=== PATIENT | female | born 1945 | race Caucasian/White ===

== ENCOUNTER 2018-03-01 17:25 | Inpatient (IN) ==
[2018-03-02] MEDS ORDERED: GuaiFENesin Liq 200 MG/10 ML UDC PO PRN (20:55)
[2018-03-02] MEDS ORDERED: *HR* Dextrose 50 % in Water (Syg) 50 ML SYRINGE IVP PRN (21:03)
[2018-03-02] MEDS ORDERED: Dextrose Gel 15 GM/37.5 ML TUBE PO PRN ×2 (21:03)
[2018-03-02] MEDS ORDERED: D5% in Water 1,000 ML IVC PRN (21:03)
[2018-03-03] MEDS ORDERED: cloNIDine HCl 0.1 MG TABLET PO ONE (00:05)
[2018-03-03] MEDS: hydroCHLOROthiazide 25 MG TABLET PO SCH (04:33)
[2018-03-03] MEDS: amLODIPine 5 MG TABLET PO SCH (04:33)
[2018-03-03] MEDS: Metoprolol XL (24 HR) Succ 50 MG TAB.ER.24H PO SCH (04:34)
[2018-03-03] MEDS: Lisinopril 20 MG TABLET PO SCH (04:35)
[2018-03-03] MEDS: Albuterol 2.5 MG/3 ML NEBULIZER IH PRN (04:37)
[2018-03-03 07:18] LABS: Basophils # 0.1 K/mcL (0.0-0.2); Basophils % 0.6 %; Eosinophils # 0.1 K/mcL (0.0-0.6); Eosinophils % 0.9 %; Hematocrit 41.9 % (35.3-44.9); Hemoglobin 13.8 g/dL (11.5-15.4); Immature Granulocytes % 0.4 % (0-4); Lymphocytes % 17.6 %; Mean Corpuscular HGB Conc 32.9 g/dL (31.6-35.5); Mean Corpuscular Hemoglobin 28.6 pg (28.0-33.3); Mean Corpuscular Volume 86.9 fL (83.0-100.0); Mean Platelet Volume 10.4 fL (9.4-12.4); Monocytes % 11.9 %; Platelet Count 238 K/mcL (140-400); Red Blood Count 4.82 M/mcL (3.82-4.97); Red Cell Distribution Width 12.8 % (11.5-14.5); Segmented Neutrophils % 68.6 %
[2018-03-03 07:27] LABS: BUN/Creatinine Ratio 49 (6-26); Blood Urea Nitrogen 21 mg/dL (8-23); Calcium 9.5 mg/dL (8.6-10.3); Carbon Dioxide 36 mEq/L (23-29); Chloride 95 mEq/L (98-107); Glucose 176 mg/dL (70-105); Osmolality,Calculated 289 (280-300); Potassium 3.2 mEq/L (3.5-5.1); Sodium 136 mEq/L (136-145); eGFR For African Americans > 60 (> 60); eGFR For Non-African Americans > 60 (> 60)
[2018-03-03 08:09] LABS: INR 1.3; Prothrombin Time 13.7 Seconds (9.4-12.1)
[2018-03-03 08:11] LABS: Activated Partial Thrombo Time 27.4 Seconds (26.0-36.0)
[2018-03-03 08:40] LABS: Lymphocytes # 1.4 K/mcL (0.6-4.6); Neutrophils # 5.6 K/mcL (1.6-8.9)
[2018-03-03] MEDS: Insulin LISPRO 300 UNITS/3 ML VIAL SQ SCH ×3 (08:49→18:13)
[2018-03-03] MEDS: *HR* Metformin 500 MG TABLET PO SCH (12:11)
--- NOTE | 2018-03-03 13:07 | Internal Med History&Physical ---
Date of Encounter: 03/03/18 Time of Encounter: 12:26 Assessment and Plan (1) Intracranial hemorrhage Current visit: Yes Status: Acute Patient is a new admission from [facility] course she was treated for a right traumatic cranial bleed. Patient has residual of left hemiplegia, slight expressive aphasia and lethargy. Oriented to name only and unable to follow complex directions or answer complex questions. Patient's neurological exam appears unchanged from [place]'s neurology exam. We will continue with supportive care. Patient to be evaluated by physical therapy with recommendations. We will maintain systolic blood pressure less than 160. (2) HTN (hypertension) Current visit: Yes Status: Acute Vital signs are stable. We will continue with current medications. Qualifiers: Hypertension type: essential hypertension Qualified Code(s): I10 - Essential (primary) hypertension (3) COPD (chronic obstructive pulmonary disease) Current visit: Yes Status: Acute Lungs are clear throughout. Patient appears relaxed with respirations. We will continue with current medications and bronchodilators Qualifiers: COPD type: unspecified COPD Qualified Code(s): J44.9 - Chronic obstructive pulmonary disease, unspecified (4) Lingular pneumonia Current visit: No Status: Acute Patient was treated at Hospital for pneumonia. Currently remains afebrile and pulmonary status appears stable. Internal Medicine - H&P: HPI Admitted From: Intrahospital Transfer Plans for Post Hospital Care: Home History of present illness: Ms. Hines is a 72 year old female is a transfer from [facility] course she was admitted for a right thalamic cranial bleed. Patient was treated nonsurgically and appeared to recover well. Patient had fallen and struck her head prior to admission. Patient had a CT and cervical spine was cleared Pt has residual of severe LE pariparesis and expressive aphasia. Pt was confused at hospital prior to discharge. Patient currently is confused, drowsy and unable to participate with interview, so history is been taken from medical records. No family present. Patient has a history of COPD, tobacco use, diabetes, GERD and hypertension. Past Med Surg Social Fam HX - Past Medical History Source: old records reviewed Medical history: asthma, COPD, CVA, diabetes, GERD, hyperlipidemia Psychiatric history: anxiety, depression - Past Surgical History Surgical History: other - Social History Smoking Status: Current every day smoker Packs per day: 2 packs Smokeless Tobacco Status: No Alcohol use: none Drug use: none Internal Medicine - H&P: Meds Albuterol Neb [Proventil Neb] 03/03/18 [History] Citalopram Hydrobromide [Citalopram HBr] 03/03/18 [History] Metoprolol Succinate 03/03/18 [History] Pantoprazole Sodium [Protonix] 03/03/18 [History] 3 Allergy/AdvReac Type Severity Reaction Status Date / Time Sulfa (Sulfonamide Allergy Hives Verified 03/02/18 20:51 Antibiotics) ranitidine [From Zantac] AdvReac Hives Verified 02/24/18 11:30 All Systems PM: A 10-system review of systems was performed and is negative for pertinent findings except as documented above in the HPI. - Constitutional Constitutional: as per HPI, no chills, no fever(s), no night sweats - EENT Eyes: as per HPI, no change in vision, no discharge, no pain, no photophobia Ears: no ear discharge, no ear pain, no tinnitus Nose, mouth and throat: no dysphagia, no nasal discharge, no neck pain, no sore throat - Cardiovascular Cardiovascular ROS IM: as per HPI, no chest pain, no diaphoresis, no dyspnea, no lightheadedness, no palpitations, no syncope - Respiratory Respiratory: as per HPI, no cough, no dyspnea, no wheezing, no excessive phlegm production - Gastrointestinal Gastrointestinal: no abdominal pain, no diarrhea, no hematemesis, no hematochezia, no melena, no nausea, no vomiting - Genitourinary Genitourinary: no change in urinary stream, no dysuria, no flank pain, no hematuria - Musculoskeletal Musculoskeletal ROS IM: no numbness, no tingling - Integumentary Integumentary IM: no rash, no unusual bruising - Neurological Neurological ROS: no confusion, no convulsions, no focal weakness, no numbness, no tingling, no tremor(s) - Hematologic/Lymphatic Hematologic/Lymphatic: no easy bruising - Constitutional Vitals: Temp Pulse Resp BP Pulse Ox 98.1 F 60 16 169/70 93 03/03/18 08:00 03/03/18 08:00 03/03/18 08:00 03/03/18 08:00 03/03/18 08:00 General appearance: Present: A&O X 1 Exam: Patient oriented to name only. Patient remains confused and unable to answer complex questions. - Head Head exam: Present: atraumatic, normocephalic - Eye Eye exam: Present: PERRL, conjuntiva pink, sclera anicteric Pupils: Present: PERRL - Neck Neck exam general surgery: Present: supple, trachea midline. Absent: lymphadenopathy - Respiratory Respiratory exam: Present: CTAB. Absent: accessory muscle use, rales, rhonchi, wheezes - Cardiovascular Cardiovascular exam: Present: RRR, +S1, +S2. Absent: diastolic murmur, gallop, rubs, systolic murmur - GI/Abdominal GI/Abdominal exam: Present: normal bowel sounds, soft, no peritoneal signs. Absent: distended, tenderness - Extremities Exam Extremities exam: Present: warm, radial pulses palpable and symmetrical. Absent : calf tenderness, cyanotic, pedal edema - Neurological Exam Neurological exam: Present: CN II-XII intact. Absent: pronater drift, facial droop, speech deficit Additional comments: Patient currently has left hemiplegia with LE flaccid and RE at 5/5. No withdrawal with left extremities. Slight expressive aphasia. Patient oriented to name only. Patient currently appears very drowsy but is awakened by verbal. Noted to have trouble staying awake. - Skin Skin exam: Present: dry, intact Internal Med - H&P Results - Labs CBC & Chem 7: 03/03/18 06:56 03/03/18 06:56 Labs: Short CBC 03/03/18 Range/Units 06:56 WBC 8.2 D (4.3-11.1) K/mcL Hgb 13.8 D (11.5-15.4) g/dL Hct 41.9 (35.3-44.9) % Plt Count 238 (140-400) K/mcL Neutrophils # 5.6 (1.6-8.9) K/mcL BMP 03/03/18 06:56 Sodium 136 Potassium 3.2 L Chloride 95 L Carbon Dioxide 36 H BUN 21 Creatinine 0.43 L Glucose 176 H Calcium 9.5
[2018-03-03] MEDS ORDERED: cloNIDine HCl 0.1 MG TABLET PO PRN (18:30)
[2018-03-04] MEDS: Insulin LISPRO 300 UNITS/3 ML VIAL SQ SCH ×5 (00:21→21:40)
[2018-03-04] MEDS: hydroCHLOROthiazide 25 MG TABLET PO SCH (08:55)
[2018-03-04] MEDS: amLODIPine 5 MG TABLET PO SCH (08:56)
[2018-03-04] MEDS: *HR* Metformin 500 MG TABLET PO SCH (08:56)
[2018-03-04] MEDS: Metoprolol XL (24 HR) Succ 50 MG TAB.ER.24H PO SCH (08:56)
--- NOTE | 2018-03-04 10:58 | Internal Med Progress Note ---
Date of Encounter: 03/04/18 Time of Encounter: 10:56 - Assessment and plan (1) Intracranial hemorrhage Current Visit: Yes Status: Inactive Assessment and plan: Patient remains very drowsy but is easily awakened. Does not dissipate in therapy very well. Continued left hemiplegia. We will continue to monitor closely. Continue with current medications. (2) HTN (hypertension) Current Visit: Yes Status: Acute Assessment and plan: Patient systolic blood pressure remains somewhat elevated on several readings. Patient has when necessary clonidine for systolic greater than 170. We will continue on current medications. Qualifiers: Hypertension type: essential hypertension Qualified Code(s): I10 - Essential (primary) hypertension (3) COPD (chronic obstructive pulmonary disease) Current Visit: Yes Status: Acute Assessment and plan: No acute issues. Patient's lungs are clear and patient appears relaxed with respirations. We will continue his current medications Qualifiers: COPD type: unspecified COPD Qualified Code(s): J44.9 - Chronic obstructive pulmonary disease, unspecified (4) Lingular pneumonia Current Visit: No Status: Inactive Assessment and plan: Patient was treated at Hospital for pneumonia and has completed her antibiotics. No further signs of infection or respiratory difficulties noted. Problem is resolved - Time Spent With Patient less than 15 minutes - Subjective Interval history: Patient continues to be very drowsy but is able to be awakened by verbal. Patient remains confused and oriented to name and sometimes to place. Exam is limited due to patient's drowsiness. - Constitutional Vitals: Temp Pulse Resp BP Pulse Ox 98.3 F 64 18 176/62 93 03/04/18 09:00 03/04/18 09:00 03/04/18 09:00 03/04/18 09:00 03/04/18 09:00 General appearance: Present: A&O X 1 Exam: This morning patient is oriented to name only. Patient has difficulty remembering that she is at a rehabilitation facility. Remains very drowsy and easily awakened - Head Head exam: Present: atraumatic, normocephalic - Eye Eye exam: Present: PERRL, conjuntiva pink, sclera anicteric Pupils: Present: PERRL - Neck Neck exam general surgery: Present: supple, trachea midline. Absent: lymphadenopathy - Respiratory Respiratory exam: Present: CTAB. Absent: accessory muscle use, rales, rhonchi, wheezes - Cardiovascular Cardiovascular exam: Present: RRR, +S1, +S2. Absent: diastolic murmur, gallop, rubs, systolic murmur - GI/Abdominal GI/Abdominal exam: Present: normal bowel sounds, soft, no peritoneal signs. Absent: distended, tenderness - Extremities Exam Extremities exam: Present: warm, radial pulses palpable and symmetrical. Absent : calf tenderness, cyanotic, pedal edema - Neurological Exam Neurological exam: Present: CN II-XII intact. Absent: pronater drift, facial droop, speech deficit Additional comments: Patient remains very drowsy but easily awakened by verbal. Oriented 1 to name only today. Poor short-term memory recall. Left hemiplegia - Skin Skin exam: Present: dry, intact Internal Medicine: Result - Labs CBC & Chem 7: 03/03/18 06:56 03/03/18 06:56 - ABG Interpretation ABG results: PT/INR, D-dimer PT 13.7 Seconds (9.4-12.1) H 03/03/18 06:56 Consult Discharge Plan - Plan Referrals: Earle Robledo MD [Primary Care Provider] -
[2018-03-04] MEDS: Lisinopril 20 MG TABLET PO SCH (12:21)
[2018-03-05] MEDS: *HR* Metformin 500 MG TABLET PO SCH (08:52)
[2018-03-05] MEDS: Metoprolol XL (24 HR) Succ 50 MG TAB.ER.24H PO SCH (08:52)
[2018-03-05] MEDS: amLODIPine 5 MG TABLET PO SCH (08:52)
[2018-03-05] MEDS: hydroCHLOROthiazide 25 MG TABLET PO SCH (08:52)
[2018-03-05] MEDS: Insulin LISPRO 300 UNITS/3 ML VIAL SQ SCH ×4 (08:55→20:35)
--- NOTE | 2018-03-05 09:28 | Internal Med Progress Note ---
Date of Encounter: 03/05/18 Time of Encounter: 09:26 - Assessment and plan (1) HTN (hypertension) Current Visit: Yes Status: Chronic Assessment and plan: stable no new change Qualifiers: Hypertension type: essential hypertension Qualified Code(s): I10 - Essential (primary) hypertension (2) COPD (chronic obstructive pulmonary disease) Current Visit: Yes Status: Chronic Assessment and plan: She is breathing her baseline with no acute issues Qualifiers: COPD type: unspecified COPD Qualified Code(s): J44.9 - Chronic obstructive pulmonary disease, unspecified (3) CVA (cerebrovascular accident due to intracerebral hemorrhage) Current Visit: Yes Status: Acute Assessment and plan: s/p left intracranial bleed clinically she is stable and improving Qualifiers: Intracerebral hemorrhage etiology: nontraumatic Cerebral hemorrhage location: cerebral hemisphere, cortical portion Laterality: left Qualified Code(s): I61.1 - Nontraumatic intracerebral hemorrhage in hemisphere, cortical - Subjective Interval history: no new complains She wants to go home and feels that she would do better at home No acute complains No chest pain nausea vomiting or diarrhea no fever or chills - Constitutional Vitals: Temp Pulse Resp BP Pulse Ox 97.9 F 60 18 153/74 88 03/05/18 07:12 03/05/18 07:12 03/04/18 19:49 03/05/18 07:12 03/05/18 07:12 General appearance: Present: A&O X 1, A&O X 3, pleasant, no acute distress - Head Head exam: Present: atraumatic - Eye Eye exam: Present: EOMI, PERRL - Neck Neck exam general surgery: Present: supple. Absent: tenderness, nuchal rigidity - Respiratory Respiratory exam: Present: CTAB. Absent: respiratory distress, rhonchi, stridor , wheezes, tachypnea - Cardiovascular Cardiovascular exam: Present: RRR, +S1, +S2. Absent: irregular rhythm, JVD - GI/Abdominal GI/Abdominal exam: Present: normal bowel sounds, soft. Absent: distended, firm , guarding, rebound, rigid - Extremities Exam Extremities exam: Absent: pedal edema, tenderness - Neurological Exam Neurological exam: Present: oriented X3. Absent: facial droop, speech deficit Additional comments: left side weakness no aphasia noted she is awake and her oriented has improved a lot since she was admitted Internal Medicine: Result - Labs CBC & Chem 7: 03/03/18 06:56 03/03/18 06:56 - ABG Interpretation ABG results: PT/INR, D-dimer PT 13.7 Seconds (9.4-12.1) H 03/03/18 06:56 - Impressions Impressions Chest X-Ray 03/04/18 13:57 IMPRESSION: 1. Airspace disease within the periphery of the right lower lobe which may reflect small effusion and atelectasis versus focal infiltrate. 2. Atelectasis within the left lung base. 3. Remote fracture of the distal left clavicle. D/ / Ayaan Mclaughlin MD / Ayaan Mclaughlin MD Interpreting Provider: Ayaan Mclaughlin MD Consult Discharge Plan - Plan Referrals: Earle Robledo MD [Primary Care Provider] -
[2018-03-05] MEDS: Lisinopril 20 MG TABLET PO SCH (12:32)
[2018-03-05] MEDS: Albuterol 2.5 MG/3 ML NEBULIZER IH PRN (20:35)
--- NOTE | 2018-03-06 09:16 | Internal Med Progress Note ---
Date of Encounter: 03/06/18 Time of Encounter: 09:14 - Assessment and plan (1) HTN (hypertension) Current Visit: Yes Status: Chronic Assessment and plan: Systolic is some what high increase HTCZ to 25 mg sodium levels are OK add KCL for few days labs tomorrow Qualifiers: Hypertension type: essential hypertension Qualified Code(s): I10 - Essential (primary) hypertension (2) COPD (chronic obstructive pulmonary disease) Current Visit: Yes Status: Chronic Assessment and plan: She is breathing her baseline with no acute issues. Some congestion however able to clear her lung with midl cough no fever or chill continue present treatment Qualifiers: COPD type: unspecified COPD Qualified Code(s): J44.9 - Chronic obstructive pulmonary disease, unspecified (3) CVA (cerebrovascular accident due to intracerebral hemorrhage) Current Visit: Yes Status: Acute Assessment and plan: s/p left intracranial bleed clinically she is stable and improving deperately wnats to go home I doubt that she is able to manage her self needs to continue rehab for now Qualifiers: Intracerebral hemorrhage etiology: nontraumatic Cerebral hemorrhage location: cerebral hemisphere, cortical portion Laterality: left Qualified Code(s): I61.1 - Nontraumatic intracerebral hemorrhage in hemisphere, cortical - Subjective Interval history: Feels the same as before she wants to go home has come pulmuary congestion but able to clear with cough . Alert and oriented . - Constitutional Vitals: Temp Pulse Resp BP Pulse Ox 97.6 F 55 16 166/52 94 03/06/18 07:00 03/06/18 07:00 03/06/18 07:00 03/06/18 07:00 03/06/18 07:00 General appearance: Present: A&O X 3, pleasant, no acute distress, answers questions appropriately - Head Head exam: Present: atraumatic - Eye Eye exam: Present: EOMI, PERRL. Absent: conjuntiva pink, sclera anicteric Pupils: Present: PERRL - Neck Neck exam general surgery: Present: supple. Absent: tenderness, nuchal rigidity - Respiratory Respiratory exam: Present: CTAB. Absent: chest wall tenderness, decreased breath sounds, respiratory distress, rhonchi, stridor, wheezes, tachypnea - Cardiovascular Cardiovascular exam: Present: RRR, +S1, +S2. Absent: bradycardia, clicks, irregular rhythm, JVD - GI/Abdominal GI/Abdominal exam: Present: normal bowel sounds, soft. Absent: firm, guarding, rebound, rigid - Extremities Exam Extremities exam: Absent: pedal edema, tenderness, warm - Neurological Exam Neurological exam: Present: alert, CN II-XII intact, oriented X3. Absent: facial droop, speech deficit Additional comments: Weakness left side as before no change Internal Medicine: Result - Labs CBC & Chem 7: 03/03/18 06:56 03/03/18 06:56 - ABG Interpretation ABG results: PT/INR, D-dimer PT 13.7 Seconds (9.4-12.1) H 03/03/18 06:56 Consult Discharge Plan - Plan Referrals: Earle Robledo MD [Primary Care Provider] -
[2018-03-06] MEDS: Insulin LISPRO 300 UNITS/3 ML VIAL SQ SCH ×4 (09:54→20:34)
[2018-03-06] MEDS: Metoprolol XL (24 HR) Succ 50 MG TAB.ER.24H PO SCH (09:55)
[2018-03-06] MEDS: amLODIPine 5 MG TABLET PO SCH (09:56)
[2018-03-06] MEDS: *HR* Metformin 500 MG TABLET PO SCH (09:56)
[2018-03-06] MEDS: Lisinopril 20 MG TABLET PO SCH (13:02)
[2018-03-06] MEDS: Mag Hydrox/Al Hydrox/Simeth 30 ML UDC PO PRN (23:03)
[2018-03-07] MEDS: hydroCHLOROthiazide 25 MG TABLET PO SCH ×2 (07:59→10:29)
[2018-03-07] MEDS: *HR* Metformin 500 MG TABLET PO SCH (10:29)
[2018-03-07] MEDS: Metoprolol XL (24 HR) Succ 50 MG TAB.ER.24H PO SCH (10:29)
[2018-03-07] MEDS: amLODIPine 5 MG TABLET PO SCH (10:29)
[2018-03-07] MEDS: Lisinopril 20 MG TABLET PO SCH (10:29)
[2018-03-07] MEDS: Insulin LISPRO 300 UNITS/3 ML VIAL SQ SCH ×4 (10:30→22:23)
--- NOTE | 2018-03-07 14:56 | Internal Med Progress Note ---
Date of Encounter: 03/07/18 Time of Encounter: 14:53 - Assessment and plan (1) CVA (cerebrovascular accident due to intracerebral hemorrhage) Current Visit: Yes Status: Acute Assessment and plan: No new neuro deficits at this time. Continue PT\OT\ST. Will follow up with neurologist as scheduled. Qualifiers: Intracerebral hemorrhage etiology: nontraumatic Cerebral hemorrhage location: cerebral hemisphere, cortical portion Laterality: left Qualified Code(s): I61.1 - Nontraumatic intracerebral hemorrhage in hemisphere, cortical (2) HTN (hypertension) Current Visit: Yes Status: Chronic Assessment and plan: Controlled with current medication. Monitor blood pressure. Qualifiers: Hypertension type: essential hypertension Qualified Code(s): I10 - Essential (primary) hypertension (3) COPD (chronic obstructive pulmonary disease) Current Visit: Yes Status: Chronic Assessment and plan: Stable. Continue oxygen. Monitor saturation. Continue inhaled medication. Qualifiers: COPD type: unspecified COPD Qualified Code(s): J44.9 - Chronic obstructive pulmonary disease, unspecified - Time Spent With Patient 25 - 35 minutes - Subjective Interval history: Patient taking lots of encouragement to participate with therapy. Very fatigued. No new neurological deficits. Patient is max assist for transfers. Denies any pain or complaints at this time. - Constitutional Vitals: Temp Pulse Resp BP Pulse Ox 98.1 F 54 16 162/59 95 03/07/18 07:00 03/07/18 07:00 03/07/18 07:00 03/07/18 11:52 03/07/18 07:00 General appearance: Present: A&O X 3, pleasant, no acute distress, answers questions appropriately - Head Head exam: Present: atraumatic, normocephalic - Eye Eye exam: Present: PERRL, conjuntiva pink, sclera anicteric Pupils: Present: PERRL - Neck Neck exam general surgery: Present: supple, trachea midline. Absent: lymphadenopathy - Respiratory Respiratory exam: Present: CTAB. Absent: accessory muscle use, rales, rhonchi, wheezes - Cardiovascular Cardiovascular exam: Present: RRR, +S1, +S2. Absent: diastolic murmur, gallop, rubs, systolic murmur - GI/Abdominal GI/Abdominal exam: Present: normal bowel sounds, soft, no peritoneal signs. Absent: distended, tenderness - Extremities Exam Extremities exam: Present: warm, radial pulses palpable and symmetrical. Absent : calf tenderness, cyanotic, pedal edema Additional comments: Left-sided weakness - Neurological Exam Neurological exam: Present: CN II-XII intact, oriented X3, no focal deficits. Absent: pronater drift, facial droop, speech deficit - Skin Skin exam: Present: dry, intact Internal Medicine: Result - Labs CBC & Chem 7: 03/03/18 06:56 03/03/18 06:56 - ABG Interpretation ABG results: PT/INR, D-dimer PT 13.7 Seconds (9.4-12.1) H 03/03/18 06:56 - VTE Documentation of Mechanical Device: Graduated compression elastic hosiery Consult Discharge Plan - Plan Referrals: Earle Robledo MD [Primary Care Provider] -
[2018-03-08 06:03] LABS: Basophils # 0.1 K/mcL (0.0-0.2); Basophils % 0.8 %; Eosinophils # 0.1 K/mcL (0.0-0.6); Eosinophils % 1.3 %; Hemoglobin 13.7 g/dL (11.5-15.4); Immature Granulocytes % 0.2 % (0-4); Mean Corpuscular HGB Conc 34.3 g/dL (31.6-35.5); Mean Corpuscular Volume 84.7 fL (83.0-100.0); Mean Platelet Volume 11.6 fL (9.4-12.4); Monocytes # 1.1 K/mcL (0.0-1.3); Monocytes % 10.4 %; Neutrophils # 6.1 K/mcL (1.6-8.9); Platelet Count 234 K/mcL (140-400); Red Blood Count 4.72 M/mcL (3.82-4.97); Red Cell Distribution Width 12.5 % (11.5-14.5); Segmented Neutrophils % 58.3 %
[2018-03-08 06:15] LABS: BUN/Creatinine Ratio 34 (6-26); Blood Urea Nitrogen 17 mg/dL (8-23); Calcium 9.3 mg/dL (8.6-10.3); Carbon Dioxide 37 mEq/L (23-29); Chloride 94 mEq/L (98-107); Glucose 96 mg/dL (70-105); Osmolality,Calculated 281 (280-300); Potassium 3.7 mEq/L (3.5-5.1); Sodium 135 mEq/L (136-145); eGFR For African Americans > 60 (> 60); eGFR For Non-African Americans > 60 (> 60)
[2018-03-08] MEDS: *HR* Metformin 500 MG TABLET PO SCH (09:47)
[2018-03-08] MEDS: Metoprolol XL (24 HR) Succ 50 MG TAB.ER.24H PO SCH (09:48)
[2018-03-08] MEDS: amLODIPine 5 MG TABLET PO SCH (09:48)
[2018-03-08] MEDS: hydroCHLOROthiazide 25 MG TABLET PO SCH (09:50)
[2018-03-08] MEDS: Insulin LISPRO 300 UNITS/3 ML VIAL SQ SCH ×4 (09:50→20:41)
[2018-03-08] MEDS: Lisinopril 20 MG TABLET PO SCH (12:49)
--- NOTE | 2018-03-08 12:56 | Internal Med Progress Note ---
Date of Encounter: 03/08/18 Time of Encounter: 12:52 - Assessment and plan (1) CVA (cerebrovascular accident due to intracerebral hemorrhage) Current Visit: Yes Status: Acute Assessment and plan: left hemiplegia. No new neuro deficits at this time. Continue PT\OT\ST. Will follow up with neurologist as scheduled. ST to repeat modified barium swallow. Qualifiers: Intracerebral hemorrhage etiology: nontraumatic Cerebral hemorrhage location: cerebral hemisphere, cortical portion Laterality: left Qualified Code(s): I61.1 - Nontraumatic intracerebral hemorrhage in hemisphere, cortical (2) HTN (hypertension) Current Visit: Yes Status: Chronic Assessment and plan: Controlled with current medication. Monitor blood pressure. Qualifiers: Hypertension type: essential hypertension Qualified Code(s): I10 - Essential (primary) hypertension (3) COPD (chronic obstructive pulmonary disease) Current Visit: Yes Status: Chronic Assessment and plan: Stable. Continue oxygen. Monitor saturation. Continue inhaled medication. only used O2 prn at home prior to admission. Qualifiers: COPD type: unspecified COPD Qualified Code(s): J44.9 - Chronic obstructive pulmonary disease, unspecified - Time Spent With Patient 25 - 35 minutes - Subjective Interval history: Patient up in wheelchair eating lunch. Feeding self. Pure diet with nectar thick liquids. Asking to go home, states family will take care of her. discussed with her safety issue. States she will smoke anymore. History of 2 pack per day smoker. no new neurodeficits or complaints. left sided hemiplegia. - Constitutional Vitals: Temp Pulse Resp BP Pulse Ox 97.8 F 58 15 165/58 94 03/08/18 07:55 03/08/18 07:55 03/07/18 19:00 03/08/18 07:55 03/08/18 07:55 General appearance: Present: A&O X 3, pleasant, no acute distress, answers questions appropriately - Head Head exam: Present: atraumatic, normocephalic - Eye Eye exam: Present: PERRL, conjuntiva pink, sclera anicteric Pupils: Present: PERRL - Neck Neck exam general surgery: Present: supple, trachea midline. Absent: lymphadenopathy - Respiratory Respiratory exam: Present: CTAB. Absent: accessory muscle use, rales, rhonchi, wheezes - Cardiovascular Cardiovascular exam: Present: RRR, +S1, +S2. Absent: diastolic murmur, gallop, rubs, systolic murmur - GI/Abdominal GI/Abdominal exam: Present: normal bowel sounds, soft, no peritoneal signs. Absent: distended, tenderness - Extremities Exam Extremities exam: Present: warm, radial pulses palpable and symmetrical. Absent : calf tenderness, cyanotic, pedal edema Additional comments: left hemiplegia. - Neurological Exam Neurological exam: Present: CN II-XII intact, oriented X3, no focal deficits. Absent: pronater drift, facial droop, speech deficit - Skin Skin exam: Present: dry, intact Internal Medicine: Result - Labs CBC & Chem 7: 03/08/18 05:10 03/08/18 05:10 Labs: Short CBC 03/08/18 Range/Units 05:10 WBC 10.4 (4.3-11.1) K/mcL Hgb 13.7 (11.5-15.4) g/dL Hct 40.0 (35.3-44.9) % Plt Count 234 (140-400) K/mcL Neutrophils # 6.1 (1.6-8.9) K/mcL BMP 03/08/18 05:10 Sodium 135 L Potassium 3.7 Chloride 94 L Carbon Dioxide 37 H BUN 17 Creatinine 0.50 L Glucose 96 Calcium 9.3 - ABG Interpretation ABG results: PT/INR, D-dimer PT 13.7 Seconds (9.4-12.1) H 03/03/18 06:56 - VTE Documentation of Mechanical Device: Graduated compression elastic hosiery Consult Discharge Plan - Plan Referrals: Earle Robledo MD [Primary Care Provider] -
[2018-03-09] MEDS: Metoprolol XL (24 HR) Succ 50 MG TAB.ER.24H PO SCH (09:16)
[2018-03-09] MEDS: hydroCHLOROthiazide 25 MG TABLET PO SCH (09:16)
[2018-03-09] MEDS: amLODIPine 5 MG TABLET PO SCH (09:16)
[2018-03-09] MEDS: *HR* Metformin 500 MG TABLET PO SCH (09:16)
[2018-03-09] MEDS: Insulin LISPRO 300 UNITS/3 ML VIAL SQ SCH ×4 (09:16→21:08)
[2018-03-09] MEDS: Lisinopril 20 MG TABLET PO SCH (12:34)
--- NOTE | 2018-03-09 15:55 | Internal Med Progress Note ---
Date of Encounter: 03/09/18 Time of Encounter: 15:53 - Assessment and plan (1) CVA (cerebrovascular accident due to intracerebral hemorrhage) Current Visit: Yes Status: Acute Assessment and plan: left hemiplegia. No new neuro deficits at this time. Continue PT\OT\ST. Will follow up with neurologist as scheduled. ST to repeat modified barium swallow. Qualifiers: Intracerebral hemorrhage etiology: nontraumatic Cerebral hemorrhage location: cerebral hemisphere, cortical portion Laterality: left Qualified Code(s): I61.1 - Nontraumatic intracerebral hemorrhage in hemisphere, cortical (2) HTN (hypertension) Current Visit: Yes Status: Chronic Assessment and plan: Controlled with current medication. Monitor blood pressure. Qualifiers: Hypertension type: essential hypertension Qualified Code(s): I10 - Essential (primary) hypertension (3) COPD (chronic obstructive pulmonary disease) Current Visit: Yes Status: Chronic Assessment and plan: Stable. Continue oxygen. Monitor saturation. Continue inhaled medication. only used O2 prn at home prior to admission. Qualifiers: COPD type: unspecified COPD Qualified Code(s): J44.9 - Chronic obstructive pulmonary disease, unspecified - Time Spent With Patient less than 15 minutes - Subjective Interval history: Participating with therapy. Poor trunk control with no awareness. Left hemiplegia Feeding self. Pure diet with nectar thick liquids. Asking to go home, states family will take care of her. discussed with her safety issue. no new neurodeficits or complaints. left sided hemiplegia. Denies pain or any other complaints at this time. - Constitutional Vitals: Temp Pulse Resp BP Pulse Ox 98.1 F 71 16 152/67 97 03/09/18 07:00 03/09/18 12:21 03/09/18 07:00 03/09/18 12:21 03/09/18 07:00 General appearance: Present: A&O X 3, pleasant, no acute distress, answers questions appropriately Exam: Dysarthria with slight left facial droop and left hemiplegia - Head Head exam: Present: atraumatic, normocephalic - Eye Eye exam: Present: PERRL, conjuntiva pink, sclera anicteric Pupils: Present: PERRL - Neck Neck exam general surgery: Present: supple, trachea midline. Absent: lymphadenopathy - Respiratory Respiratory exam: Present: CTAB. Absent: accessory muscle use, rales, rhonchi, wheezes - Cardiovascular Cardiovascular exam: Present: RRR, +S1, +S2. Absent: diastolic murmur, gallop, rubs, systolic murmur - GI/Abdominal GI/Abdominal exam: Present: normal bowel sounds, soft, no peritoneal signs. Absent: distended, tenderness - Extremities Exam Extremities exam: Present: warm, radial pulses palpable and symmetrical. Absent : calf tenderness, cyanotic, pedal edema - Neurological Exam Neurological exam: Present: CN II-XII intact, oriented X3, no focal deficits. Absent: pronater drift, facial droop, speech deficit - Skin Skin exam: Present: dry, intact Internal Medicine: Result - Labs CBC & Chem 7: 03/08/18 05:10 03/08/18 05:10 - ABG Interpretation ABG results: PT/INR, D-dimer PT 13.7 Seconds (9.4-12.1) H 03/03/18 06:56 - VTE Documentation of Mechanical Device: Graduated compression elastic hosiery Consult Discharge Plan - Plan Referrals: Earle Robledo MD [Primary Care Provider] -
[2018-03-10] MEDS: amLODIPine 5 MG TABLET PO SCH (08:27)
[2018-03-10] MEDS: Metoprolol XL (24 HR) Succ 50 MG TAB.ER.24H PO SCH (08:27)
[2018-03-10] MEDS: *HR* Metformin 500 MG TABLET PO SCH (08:27)
[2018-03-10] MEDS: hydroCHLOROthiazide 25 MG TABLET PO SCH (08:28)
[2018-03-10] MEDS: Insulin LISPRO 300 UNITS/3 ML VIAL SQ SCH ×4 (11:31→21:25)
[2018-03-10] MEDS: Lisinopril 20 MG TABLET PO SCH (12:01)
--- NOTE | 2018-03-10 12:05 | Internal Med Progress Note ---
Date of Encounter: 03/10/18 Time of Encounter: 12:03 - Assessment and plan (1) Intracranial hemorrhage Current Visit: Yes Status: Inactive Assessment and plan: Patient drowsy when in bed, but easily awakened by verbal. Continued left hemiparesis, appears slightly increased and muscle strength over the past week. No other acute neurological deficits noted on exam. Patient has been tolerating dysphagia diet well. We will continue to monitor closely. Continue with current medications and therapy. (2) HTN (hypertension) Current Visit: Yes Status: Chronic Assessment and plan: Patient systolic blood pressure remains somewhat elevated on several readings. Patient has when necessary clonidine for systolic greater than 170. We will continue on current medications. Qualifiers: Hypertension type: essential hypertension Qualified Code(s): I10 - Essential (primary) hypertension (3) COPD (chronic obstructive pulmonary disease) Current Visit: Yes Status: Chronic Assessment and plan: No acute issues. Patient's lungs are clear and patient appears relaxed with respirations. Last CXR shows no acute infectious process. We will continue his current medications Qualifiers: COPD type: unspecified COPD Qualified Code(s): J44.9 - Chronic obstructive pulmonary disease, unspecified - Time Spent With Patient less than 15 minutes - Subjective Interval history: Patient continues to be drowsy but is able to be awakened by verbal. Patient appears more oriented today and states that she wants to go home soon. Denies any discomforts or shortness of breath - Constitutional Vitals: Temp Pulse Resp BP Pulse Ox 98.0 F 58 20 134/57 95 03/10/18 08:03 03/10/18 08:03 03/10/18 08:03 03/10/18 08:03 03/10/18 08:03 General appearance: Present: A&O X 3, pleasant, no acute distress, answers questions appropriately - Head Head exam: Present: atraumatic, normocephalic - Eye Eye exam: Present: PERRL, conjuntiva pink, sclera anicteric Pupils: Present: PERRL - Neck Neck exam general surgery: Present: supple, trachea midline. Absent: lymphadenopathy - Respiratory Respiratory exam: Present: CTAB. Absent: accessory muscle use, rales, rhonchi, wheezes - Cardiovascular Cardiovascular exam: Present: RRR, +S1, +S2. Absent: diastolic murmur, gallop, rubs, systolic murmur - GI/Abdominal GI/Abdominal exam: Present: normal bowel sounds, soft, no peritoneal signs. Absent: distended, tenderness - Extremities Exam Extremities exam: Present: warm, radial pulses palpable and symmetrical. Absent : calf tenderness, cyanotic, pedal edema - Neurological Exam Neurological exam: Present: CN II-XII intact, oriented X3. Absent: pronater drift, facial droop, speech deficit Additional comments: Continued left hemiparesis with LE 2/5 and RE 5/5. - Skin Skin exam: Present: dry, intact Internal Medicine: Result - Labs CBC & Chem 7: 03/08/18 05:10 03/08/18 05:10 - ABG Interpretation ABG results: PT/INR, D-dimer PT 13.7 Seconds (9.4-12.1) H 03/03/18 06:56 - VTE Documentation of Mechanical Device: Graduated compression elastic hosiery Consult Discharge Plan - Plan Referrals: Earle Robledo MD [Primary Care Provider] -
[2018-03-11] MEDS: Insulin LISPRO 300 UNITS/3 ML VIAL SQ SCH ×4 (08:57→21:33)
[2018-03-11] MEDS: hydroCHLOROthiazide 25 MG TABLET PO SCH (09:03)
[2018-03-11] MEDS: Metoprolol XL (24 HR) Succ 50 MG TAB.ER.24H PO SCH (09:03)
[2018-03-11] MEDS: amLODIPine 5 MG TABLET PO SCH (09:03)
[2018-03-11] MEDS: *HR* Metformin 500 MG TABLET PO SCH (09:04)
--- NOTE | 2018-03-11 10:47 | Internal Med Progress Note ---
Date of Encounter: 03/11/18 Time of Encounter: 10:45 - Assessment and plan (1) Intracranial hemorrhage Current Visit: Yes Status: Inactive Assessment and plan: Patient drowsy when in bed, but easily awakened by verbal. Continued left hemiparesis, continues with slight increased in muscle strength over the past week. No other acute neurological deficits noted on exam. Patient has been tolerating dysphagia diet well. We will continue to monitor closely. Continue with current medications and therapy. (2) HTN (hypertension) Current Visit: Yes Status: Chronic Assessment and plan: Patient systolic blood pressure remains somewhat elevated on several readings. Patient has when necessary clonidine for systolic greater than 170. We will continue on current medications. Qualifiers: Hypertension type: essential hypertension Qualified Code(s): I10 - Essential (primary) hypertension (3) COPD (chronic obstructive pulmonary disease) Current Visit: Yes Status: Chronic Assessment and plan: No acute issues. Patient's lungs are clear and patient appears relaxed with respirations. Last CXR shows no acute infectious process. We will continue his current medications Qualifiers: COPD type: unspecified COPD Qualified Code(s): J44.9 - Chronic obstructive pulmonary disease, unspecified - Time Spent With Patient less than 15 minutes - Subjective Interval history: Patient continues to be drowsy and falls asleep when not stimulated. Patient is always very easily to awakened by verbal. Patient appears more oriented today and states that she wants to go home soon. Denies any discomforts or shortness of breath. Physical therapy reports patient has been progressing with movement on her left extremities. - Constitutional Vitals: Temp Pulse Resp BP Pulse Ox 97.8 F 57 17 153/71 96 03/11/18 07:41 03/11/18 07:41 03/11/18 07:41 03/11/18 07:41 03/11/18 07:41 General appearance: Present: A&O X 3, pleasant, no acute distress, answers questions appropriately - Head Head exam: Present: atraumatic, normocephalic - Eye Eye exam: Present: PERRL, conjuntiva pink, sclera anicteric Pupils: Present: PERRL - Neck Neck exam general surgery: Present: supple, trachea midline. Absent: lymphadenopathy - Respiratory Respiratory exam: Present: CTAB. Absent: accessory muscle use, rales, rhonchi, wheezes - Cardiovascular Cardiovascular exam: Present: RRR, +S1, +S2. Absent: diastolic murmur, gallop, rubs, systolic murmur - GI/Abdominal GI/Abdominal exam: Present: normal bowel sounds, soft, no peritoneal signs. Absent: distended, tenderness - Extremities Exam Extremities exam: Present: warm, radial pulses palpable and symmetrical. Absent : calf tenderness, cyanotic, pedal edema - Neurological Exam Neurological exam: Present: CN II-XII intact, oriented X3. Absent: pronater drift, facial droop, speech deficit Additional comments: Patient continues with left hemiparesis. Noted slight increase in muscle strength on the left with patient being able to move the fingers and her left foot. Left extremities currently at 2/5 MS and right extremities are 5/5 MS. - Skin Skin exam: Present: dry, intact Internal Medicine: Result - Labs CBC & Chem 7: 03/08/18 05:10 03/08/18 05:10 - ABG Interpretation ABG results: PT/INR, D-dimer PT 13.7 Seconds (9.4-12.1) H 03/03/18 06:56 - VTE Documentation of Mechanical Device: Graduated compression elastic hosiery Consult Discharge Plan - Plan Referrals: Earle Robledo MD [Primary Care Provider] -
[2018-03-11] MEDS: Lisinopril 20 MG TABLET PO SCH (11:44)
[2018-03-12] MEDS: Insulin LISPRO 300 UNITS/3 ML VIAL SQ SCH ×4 (08:12→21:04)
[2018-03-12] MEDS: amLODIPine 5 MG TABLET PO SCH (09:19)
[2018-03-12] MEDS: hydroCHLOROthiazide 25 MG TABLET PO SCH (09:20)
[2018-03-12] MEDS: *HR* Metformin 500 MG TABLET PO SCH (09:20)
[2018-03-12] MEDS: Metoprolol XL (24 HR) Succ 50 MG TAB.ER.24H PO SCH (09:21)
[2018-03-12] MEDS: Lisinopril 20 MG TABLET PO SCH (11:46)
--- NOTE | 2018-03-12 14:48 | Internal Med Progress Note ---
Date of Encounter: 03/12/18 Time of Encounter: 14:46 - Assessment and plan (1) CVA (cerebrovascular accident due to intracerebral hemorrhage) Current Visit: Yes Status: Acute Assessment and plan: Patient denies acute issues. Wants to go home. We will continue as planned with therapies, etc. Qualifiers: Intracerebral hemorrhage etiology: nontraumatic Cerebral hemorrhage location: cerebral hemisphere, cortical portion Laterality: left Qualified Code(s): I61.1 - Nontraumatic intracerebral hemorrhage in hemisphere, cortical (2) COPD (chronic obstructive pulmonary disease) Current Visit: Yes Status: Chronic Assessment and plan: Clinically stable. We will continue home regimen and follow. This includes oxygen at 1 L/m. Qualifiers: COPD type: unspecified COPD Qualified Code(s): J44.9 - Chronic obstructive pulmonary disease, unspecified (3) HTN (hypertension) Current Visit: Yes Status: Chronic Assessment and plan: Clinically stable. We will continue home regimen and follow. Qualifiers: Hypertension type: essential hypertension Qualified Code(s): I10 - Essential (primary) hypertension - Time Spent With Patient 25 - 35 minutes - Subjective Interval history: Patient wants to go home, as ever. She has no other acute complaints. Patient has no complaint of chest discomfort, dyspnea, orthopnea, palpitations, nausea or vomiting, constipation or diarrhea, other changes in bowel habits, difficulty with urination, rash or itching, or other new complaints, except as mentioned above. Review of systems is otherwise unremarkable. - Constitutional Vitals: Temp Pulse Resp BP Pulse Ox 98.0 F 50 18 140/78 95 03/12/18 09:05 03/12/18 11:48 03/12/18 11:48 03/12/18 11:48 03/12/18 09:05 General appearance: Present: pleasant, answers questions appropriately Exam: Examination: (Except as mentioned above): General: In no apparent distress. Alert and oriented 3. Nondiaphoretic. Head: Atraumatic and normocephalic. Respiratory: No use of accessory muscles. Lungs are clear throughout. Normal airflow. Cardiovascular: Regular rate and rhythm without murmur appreciated. Abdomen: Bowel sounds are normal. No hepatosplenomegaly mass or tenderness appreciated. Obese and therefore difficult to palpate deeply. Extremities: No cyanosis clubbing or edema. Skin: Warm and non-diaphoretic with no new lesions noted. Still with hemiparesis, as before. Internal Medicine: Result - Labs CBC & Chem 7: 03/08/18 05:10 03/08/18 05:10 - ABG Interpretation ABG results: PT/INR, D-dimer PT 13.7 Seconds (9.4-12.1) H 03/03/18 06:56 - VTE Documentation of Mechanical Device: Graduated compression elastic hosiery Consult Discharge Plan - Plan Referrals: Earle Robledo MD [Primary Care Provider] -
[2018-03-12] MEDS: Mag Hydrox/Al Hydrox/Simeth 30 ML UDC PO PRN (18:30)
[2018-03-13] MEDS: Insulin LISPRO 300 UNITS/3 ML VIAL SQ SCH ×4 (08:16→20:43)
[2018-03-13] MEDS: Metoprolol XL (24 HR) Succ 50 MG TAB.ER.24H PO SCH (08:33)
[2018-03-13] MEDS: hydroCHLOROthiazide 25 MG TABLET PO SCH (08:33)
[2018-03-13] MEDS: amLODIPine 5 MG TABLET PO SCH (08:33)
[2018-03-13] MEDS: *HR* Metformin 500 MG TABLET PO SCH (08:33)
[2018-03-13] MEDS: Lisinopril 20 MG TABLET PO SCH (12:18)
[2018-03-14 07:39] LABS: Basophils # 0.1 K/mcL (0.0-0.2); Basophils % 0.7 %; Eosinophils # 0.1 K/mcL (0.0-0.6); Eosinophils % 1.6 %; Hematocrit 40.2 % (35.3-44.9); Hemoglobin 13.7 g/dL (11.5-15.4); Immature Granulocytes % 0.3 % (0-4); Lymphocytes # 1.9 K/mcL (0.6-4.6); Mean Corpuscular HGB Conc 34.1 g/dL (31.6-35.5); Mean Corpuscular Hemoglobin 28.6 pg (28.0-33.3); Mean Corpuscular Volume 83.9 fL (83.0-100.0); Monocytes # 0.8 K/mcL (0.0-1.3); Monocytes % 9.5 %; Neutrophils # 5.8 K/mcL (1.6-8.9); Platelet Count 232 K/mcL (140-400); Red Blood Count 4.79 M/mcL (3.82-4.97); Red Cell Distribution Width 12.7 % (11.5-14.5); Segmented Neutrophils % 65.9 %
[2018-03-14 08:02] LABS: BUN/Creatinine Ratio 29 (6-26); Blood Urea Nitrogen 17 mg/dL (8-23); Calcium 9.6 mg/dL (8.6-10.3); Carbon Dioxide 37 mEq/L (23-29); Chloride 90 mEq/L (98-107); Glucose 115 mg/dL (70-105); Osmolality,Calculated 276 (280-300); Potassium 3.5 mEq/L (3.5-5.1); Sodium 132 mEq/L (136-145); eGFR For African Americans > 60 (> 60); eGFR For Non-African Americans > 60 (> 60)
[2018-03-14] MEDS: Insulin LISPRO 300 UNITS/3 ML VIAL SQ SCH ×4 (08:35→21:23)
[2018-03-14] MEDS: *HR* Metformin 500 MG TABLET PO SCH (08:35)
[2018-03-14] MEDS: amLODIPine 5 MG TABLET PO SCH (08:35)
[2018-03-14] MEDS: hydroCHLOROthiazide 25 MG TABLET PO SCH (08:35)
[2018-03-14] MEDS: Metoprolol XL (24 HR) Succ 50 MG TAB.ER.24H PO SCH (10:48)
--- NOTE | 2018-03-14 11:16 | Internal Med Progress Note ---
Date of Encounter: 03/14/18 Time of Encounter: 11:16 - Assessment and plan (1) Intracranial hemorrhage Current Visit: Yes Status: Inactive Assessment and plan: Continued left hemiparesis, continues with slight increased in muscle strength over the past week. No other acute neurological deficits noted on exam. Patient has been tolerating dysphagia diet well. We will continue to monitor closely. Continue with current medications and therapy. (2) HTN (hypertension) Current Visit: Yes Status: Chronic Assessment and plan: Patient systolic blood pressure remains somewhat elevated on several readings. Patient has when necessary clonidine for systolic greater than 170. We will continue on current medications. Qualifiers: Hypertension type: essential hypertension Qualified Code(s): I10 - Essential (primary) hypertension (3) COPD (chronic obstructive pulmonary disease) Current Visit: Yes Status: Chronic Assessment and plan: No acute issues. Patient's lungs are clear and patient appears relaxed with respirations. Last CXR shows no acute infectious process. We will continue his current medications Qualifiers: COPD type: unspecified COPD Qualified Code(s): J44.9 - Chronic obstructive pulmonary disease, unspecified - Time Spent With Patient less than 15 minutes - Subjective Interval history: Patient denies any discomforts or shortness of breath. Physical therapy reports patient has been progressing with movement on her left extremities. - Constitutional Vitals: Temp Pulse Resp BP Pulse Ox 97.9 F 59 16 160/61 92 03/14/18 07:34 03/14/18 07:34 03/14/18 07:34 03/14/18 07:34 03/14/18 07:34 General appearance: Present: A&O X 3, pleasant, answers questions appropriately - Head Head exam: Present: atraumatic, normocephalic - Eye Eye exam: Present: PERRL, conjuntiva pink, sclera anicteric Pupils: Present: PERRL - Neck Neck exam general surgery: Present: supple, trachea midline. Absent: lymphadenopathy - Respiratory Respiratory exam: Present: CTAB. Absent: accessory muscle use, rales, rhonchi, wheezes - Cardiovascular Cardiovascular exam: Present: RRR, +S1, +S2. Absent: diastolic murmur, gallop, rubs, systolic murmur - GI/Abdominal GI/Abdominal exam: Present: normal bowel sounds, soft, no peritoneal signs. Absent: distended, tenderness - Extremities Exam Extremities exam: Present: warm, radial pulses palpable and symmetrical. Absent : calf tenderness, cyanotic, pedal edema - Neurological Exam Neurological exam: Present: CN II-XII intact, oriented X3. Absent: pronater drift, facial droop, speech deficit Additional comments: Patient continues with left hemiparesis with left extremities muscle strength at 2/5. Right extremities muscle strength at 5/5. - Skin Skin exam: Present: dry, intact Internal Medicine: Result - Labs CBC & Chem 7: 03/14/18 07:01 03/14/18 07:01 Labs: Short CBC 03/14/18 Range/Units 07:01 WBC 8.8 (4.3-11.1) K/mcL Hgb 13.7 (11.5-15.4) g/dL Hct 40.2 (35.3-44.9) % Plt Count 232 (140-400) K/mcL Neutrophils # 5.8 (1.6-8.9) K/mcL BMP 03/14/18 07:01 Sodium 132 L Potassium 3.5 Chloride 90 L Carbon Dioxide 37 H BUN 17 Creatinine 0.58 L Glucose 115 H Calcium 9.6 - ABG Interpretation ABG results: PT/INR, D-dimer PT 13.7 Seconds (9.4-12.1) H 03/03/18 06:56 - VTE Documentation of Mechanical Device: Graduated compression elastic hosiery Consult Discharge Plan - Plan Referrals: Earle Robledo MD [Primary Care Provider] -
[2018-03-14] MEDS: Lisinopril 20 MG TABLET PO SCH (12:20)
--- NOTE | 2018-03-14 17:29 | Internal Med Progress Note ---
Date of Encounter: 03/13/18 Time of Encounter: 18:15 - Assessment and plan (1) CVA (cerebrovascular accident due to intracerebral hemorrhage) Current Visit: Yes Status: Acute Assessment and plan: Patient denies acute issues. Wants to go home. We will continue as planned with therapies, etc. Qualifiers: Intracerebral hemorrhage etiology: nontraumatic Cerebral hemorrhage location: cerebral hemisphere, cortical portion Laterality: left Qualified Code(s): I61.1 - Nontraumatic intracerebral hemorrhage in hemisphere, cortical (2) COPD (chronic obstructive pulmonary disease) Current Visit: Yes Status: Chronic Assessment and plan: Clinically stable. We will continue home regimen and follow. This includes oxygen at 1 L/m. Qualifiers: COPD type: unspecified COPD Qualified Code(s): J44.9 - Chronic obstructive pulmonary disease, unspecified (3) HTN (hypertension) Current Visit: Yes Status: Chronic Assessment and plan: Clinically stable. We will continue home regimen and follow. Qualifiers: Hypertension type: essential hypertension Qualified Code(s): I10 - Essential (primary) hypertension - Time Spent With Patient 25 - 35 minutes - Subjective Interval history: Patient wants to go home, as ever. She has no other acute complaints. asks about her going home, as well. Informed him that we would talk about this and staff meeting, tomorrow. Patient has no complaint of chest discomfort, dyspnea, orthopnea, palpitations, nausea or vomiting, constipation or diarrhea, other changes in bowel habits, difficulty with urination, rash or itching, or other new complaints, except as mentioned above. Review of systems is otherwise unremarkable. - Constitutional Vitals: Temp Pulse Resp BP Pulse Ox 97.9 F 59 16 160/61 92 03/14/18 07:34 03/14/18 07:34 03/14/18 07:34 03/14/18 07:34 03/14/18 07:34 General appearance: Present: answers questions appropriately Exam: Examination: (Except as mentioned above): General: In no apparent distress. Alert and oriented 3. Nondiaphoretic. Head: Atraumatic and normocephalic. Respiratory: No use of accessory muscles. Lungs are clear throughout. Normal airflow. Cardiovascular: Regular rate and rhythm without murmur appreciated. Abdomen: Bowel sounds are normal. No hepatosplenomegaly mass or tenderness appreciated. Obese and therefore difficult to palpate deeply. Extremities: No cyanosis clubbing or edema. Skin: Warm and non-diaphoretic with no new lesions noted. Still with hemiparesis as before. Internal Medicine: Result - Labs CBC & Chem 7: 03/14/18 07:01 03/14/18 07:01 Labs: Short CBC 03/14/18 Range/Units 07:01 WBC 8.8 (4.3-11.1) K/mcL Hgb 13.7 (11.5-15.4) g/dL Hct 40.2 (35.3-44.9) % Plt Count 232 (140-400) K/mcL Neutrophils # 5.8 (1.6-8.9) K/mcL BMP 03/14/18 07:01 Sodium 132 L Potassium 3.5 Chloride 90 L Carbon Dioxide 37 H BUN 17 Creatinine 0.58 L Glucose 115 H Calcium 9.6 - ABG Interpretation ABG results: PT/INR, D-dimer PT 13.7 Seconds (9.4-12.1) H 03/03/18 06:56 - VTE Documentation of Mechanical Device: Graduated compression elastic hosiery Consult Discharge Plan - Plan Referrals: Earle Robledo MD [Primary Care Provider] -
[2018-03-15] MEDS: Insulin LISPRO 300 UNITS/3 ML VIAL SQ SCH ×4 (07:50→21:26)
[2018-03-15] MEDS: hydroCHLOROthiazide 25 MG TABLET PO SCH (10:00)
[2018-03-15] MEDS: *HR* Metformin 500 MG TABLET PO SCH (10:00)
[2018-03-15] MEDS: Metoprolol XL (24 HR) Succ 50 MG TAB.ER.24H PO SCH (10:00)
[2018-03-15] MEDS: amLODIPine 5 MG TABLET PO SCH (10:01)
--- NOTE | 2018-03-15 11:56 | Internal Med Progress Note ---
Date of Encounter: 03/15/18 Time of Encounter: 11:54 - Assessment and plan (1) CVA (cerebrovascular accident due to intracerebral hemorrhage) Current Visit: Yes Status: Acute Assessment and plan: left hemiplegia. No new neuro deficits at this time. Continue PT\OT\ST. Will follow up with neurologist as scheduled. Qualifiers: Intracerebral hemorrhage etiology: nontraumatic Cerebral hemorrhage location: cerebral hemisphere, cortical portion Laterality: left Qualified Code(s): I61.1 - Nontraumatic intracerebral hemorrhage in hemisphere, cortical (2) HTN (hypertension) Current Visit: Yes Status: Chronic Assessment and plan: Controlled with current medication. Monitor blood pressure. Qualifiers: Hypertension type: essential hypertension Qualified Code(s): I10 - Essential (primary) hypertension (3) COPD (chronic obstructive pulmonary disease) Current Visit: Yes Status: Chronic Assessment and plan: Stable. Continue oxygen. Monitor saturation. Continue inhaled medication. only used O2 prn at home prior to admission. Qualifiers: COPD type: unspecified COPD Qualified Code(s): J44.9 - Chronic obstructive pulmonary disease, unspecified - Time Spent With Patient less than 15 minutes - Subjective Interval history: Participating with therapy. Poor trunk control with no awareness. Left hemiplegia Feeding self. Pure diet with nectar thick liquids. no new neurodeficits or complaints. Denies pain or any other complaints at this time. - Constitutional Vitals: Temp Pulse Resp BP Pulse Ox 98.3 F 54 16 150/71 98 03/15/18 07:14 03/15/18 07:14 03/15/18 07:14 03/15/18 07:14 03/15/18 07:14 General appearance: Present: A&O X 3, pleasant, no acute distress, answers questions appropriately - Head Head exam: Present: atraumatic, normocephalic - Eye Eye exam: Present: PERRL, conjuntiva pink, sclera anicteric Pupils: Present: PERRL - Neck Neck exam general surgery: Present: supple, trachea midline. Absent: lymphadenopathy - Respiratory Respiratory exam: Present: CTAB. Absent: accessory muscle use, rales, rhonchi, wheezes - Cardiovascular Cardiovascular exam: Present: RRR, +S1, +S2. Absent: diastolic murmur, gallop, rubs, systolic murmur - GI/Abdominal GI/Abdominal exam: Present: normal bowel sounds, soft, no peritoneal signs. Absent: distended, tenderness - Extremities Exam Extremities exam: Present: warm, radial pulses palpable and symmetrical. Absent : calf tenderness, cyanotic, pedal edema Additional comments: Left hemiplegia - Neurological Exam Neurological exam: Present: CN II-XII intact, oriented X3, no focal deficits. Absent: pronater drift, facial droop, speech deficit - Skin Skin exam: Present: dry, intact Internal Medicine: Result - Labs CBC & Chem 7: 03/14/18 07:01 03/14/18 07:01 - ABG Interpretation ABG results: PT/INR, D-dimer PT 13.7 Seconds (9.4-12.1) H 03/03/18 06:56 - VTE Documentation of Mechanical Device: Graduated compression elastic hosiery Consult Discharge Plan - Plan Referrals: Earle Robledo MD [Primary Care Provider] -
[2018-03-15] MEDS: Lisinopril 20 MG TABLET PO SCH (14:24)
[2018-03-16] MEDS: Metoprolol XL (24 HR) Succ 50 MG TAB.ER.24H PO SCH (08:29)
[2018-03-16] MEDS: *HR* Metformin 500 MG TABLET PO SCH (08:29)
[2018-03-16] MEDS: amLODIPine 5 MG TABLET PO SCH (08:29)
[2018-03-16] MEDS: hydroCHLOROthiazide 25 MG TABLET PO SCH (08:30)
[2018-03-16] MEDS: Insulin LISPRO 300 UNITS/3 ML VIAL SQ SCH ×4 (08:30→21:19)
[2018-03-16] MEDS: Lisinopril 20 MG TABLET PO SCH (12:34)
--- NOTE | 2018-03-16 13:58 | Internal Med Progress Note ---
Date of Encounter: 03/16/18 Time of Encounter: 13:56 - Assessment and plan (1) CVA (cerebrovascular accident due to intracerebral hemorrhage) Current Visit: Yes Status: Acute Assessment and plan: left hemiplegia. No new neuro deficits at this time. Continue PT\OT\ST. Will follow up with neurologist as scheduled. Qualifiers: Intracerebral hemorrhage etiology: nontraumatic Cerebral hemorrhage location: cerebral hemisphere, cortical portion Laterality: left Qualified Code(s): I61.1 - Nontraumatic intracerebral hemorrhage in hemisphere, cortical (2) HTN (hypertension) Current Visit: Yes Status: Chronic Assessment and plan: Controlled with current medication. Monitor blood pressure. Qualifiers: Hypertension type: essential hypertension Qualified Code(s): I10 - Essential (primary) hypertension (3) COPD (chronic obstructive pulmonary disease) Current Visit: Yes Status: Chronic Assessment and plan: Stable. Continue oxygen. Monitor saturation. Continue inhaled medication. only used O2 prn at home prior to admission. Qualifiers: COPD type: unspecified COPD Qualified Code(s): J44.9 - Chronic obstructive pulmonary disease, unspecified - Time Spent With Patient 25 - 35 minutes - Subjective Interval history: Participating with therapy. Poor trunk control with no awareness. impulsive. Left hemiplegia Feeding self. Pure diet with nectar thick liquids. no new neurodeficits or complaints. Denies pain or any other complaints at this time. O2 per NC, maintaining saturation. - Constitutional Vitals: Temp Pulse Resp BP Pulse Ox 97.6 F 55 16 142/61 96 03/16/18 07:18 03/16/18 07:18 03/16/18 07:18 03/16/18 07:18 03/16/18 07:18 General appearance: Present: A&O X 3, pleasant, no acute distress, answers questions appropriately - Head Head exam: Present: atraumatic, normocephalic - Eye Eye exam: Present: PERRL, conjuntiva pink, sclera anicteric Pupils: Present: PERRL - Neck Neck exam general surgery: Present: supple, trachea midline. Absent: lymphadenopathy - Respiratory Respiratory exam: Present: CTAB. Absent: accessory muscle use, rales, rhonchi, wheezes Additional comments: Diminished and bilateral bases - Cardiovascular Cardiovascular exam: Present: RRR, +S1, +S2. Absent: diastolic murmur, gallop, rubs, systolic murmur - GI/Abdominal GI/Abdominal exam: Present: normal bowel sounds, soft, no peritoneal signs. Absent: distended, tenderness - Extremities Exam Extremities exam: Present: warm, radial pulses palpable and symmetrical. Absent : calf tenderness, cyanotic, pedal edema Additional comments: Left hemiplegia - Neurological Exam Neurological exam: Present: CN II-XII intact, oriented X3, no focal deficits. Absent: pronater drift, facial droop, speech deficit - Skin Skin exam: Present: dry, intact Internal Medicine: Result - Labs CBC & Chem 7: 03/14/18 07:01 03/14/18 07:01 - ABG Interpretation ABG results: PT/INR, D-dimer PT 13.7 Seconds (9.4-12.1) H 03/03/18 06:56 - VTE Documentation of Mechanical Device: Graduated compression elastic hosiery Consult Discharge Plan - Plan Referrals: Earle Robledo MD [Primary Care Provider] -
[2018-03-17] MEDS: Metoprolol XL (24 HR) Succ 50 MG TAB.ER.24H PO SCH (09:19)
[2018-03-17] MEDS: amLODIPine 5 MG TABLET PO SCH (09:20)
[2018-03-17] MEDS: *HR* Metformin 500 MG TABLET PO SCH (09:20)
[2018-03-17] MEDS: hydroCHLOROthiazide 25 MG TABLET PO SCH (09:20)
[2018-03-17] MEDS: Insulin LISPRO 300 UNITS/3 ML VIAL SQ SCH ×4 (09:21→21:33)
[2018-03-17] MEDS: Lisinopril 20 MG TABLET PO SCH (14:03)
--- NOTE | 2018-03-17 14:39 | Internal Med Progress Note ---
Date of Encounter: 03/17/18 Time of Encounter: 14:32 - Assessment and plan (1) Intracranial hemorrhage Current Visit: Yes Status: Inactive Assessment and plan: Continued left hemiparesis, continues with slight increased in muscle strength over the past week. No other acute neurological deficits noted on exam. Patient has been tolerating dysphagia diet well. We will continue to monitor closely. Continue with current medications and therapy. Patient did not prepare for discharge on Wednesday. Patient continues with immobility issues due to her left hemiparesis. Would recommend patient has a semi-electric hospital bed at home after discharge. Patient will also be advised to keep them out of her bed at least 20-30 degrees due to her recent acute intracranial bleed. Patient also has a history of COPD. Patient also remains a risk for fall and injury during transfers from bed. The use of a semi -electric hospital bed would make frequent an immediate changes body position unfeasible with a coronary bed, to leave pain and shortness of breath. These of the hospital bed would also allow safe adjustments to high requirements needed for transferring from bed. Repositioning with the hospital but would allow for independent grooming and ADLs. (2) HTN (hypertension) Current Visit: Yes Status: Chronic Assessment and plan: Patient systolic blood pressure remains somewhat elevated on several readings. Patient has when necessary clonidine for systolic greater than 170. We will continue on current medications. Qualifiers: Hypertension type: essential hypertension Qualified Code(s): I10 - Essential (primary) hypertension (3) COPD (chronic obstructive pulmonary disease) Current Visit: Yes Status: Chronic Assessment and plan: No acute issues. Patient's lungs are clear and patient appears relaxed with respirations. Last CXR shows no acute infectious process. We will continue his current medications Qualifiers: COPD type: unspecified COPD Qualified Code(s): J44.9 - Chronic obstructive pulmonary disease, unspecified - Time Spent With Patient less than 15 minutes - Subjective Interval history: Patient denies any discomforts or shortness of breath. Physical therapy reports patient has been progressing with movement on her left extremities. Patient states that she wants to go home and is being prepared for DC in AM - Constitutional Vitals: Temp Pulse Resp BP Pulse Ox 98.0 F 54 16 145/59 94 03/17/18 08:08 03/17/18 08:08 03/17/18 08:08 03/17/18 08:08 03/17/18 08:08 General appearance: Present: A&O X 3, pleasant, no acute distress, answers questions appropriately Internal Medicine: Result - Labs CBC & Chem 7: 03/14/18 07:01 03/14/18 07:01 - ABG Interpretation ABG results: PT/INR, D-dimer PT 13.7 Seconds (9.4-12.1) H 03/03/18 06:56 - VTE Documentation of Mechanical Device: Graduated compression elastic hosiery Consult Discharge Plan - Plan Referrals: Earle Robledo MD [Primary Care Provider] -
[2018-03-18] MEDS: *HR* Metformin 500 MG TABLET PO SCH (10:02)
[2018-03-18] MEDS: Metoprolol XL (24 HR) Succ 50 MG TAB.ER.24H PO SCH (10:02)
[2018-03-18] MEDS: hydroCHLOROthiazide 25 MG TABLET PO SCH (10:02)
[2018-03-18] MEDS: amLODIPine 5 MG TABLET PO SCH (10:03)
[2018-03-18] MEDS: Insulin LISPRO 300 UNITS/3 ML VIAL SQ SCH ×4 (10:09→21:31)
--- NOTE | 2018-03-18 10:37 | Internal Med Progress Note ---
Date of Encounter: 03/18/18 Time of Encounter: 10:35 - Assessment and plan (1) Intracranial hemorrhage Current Visit: Yes Status: Inactive Assessment and plan: Continued left hemiparesis, continues with slight increased in muscle strength over the past week. No other acute neurological deficits noted on exam. Patient has been tolerating dysphagia diet well per therapy and today has been advanced on a dysphagia diet to a regular diet with thin liquids. We will continue to monitor closely. Continue with current medications and therapy. Patient being prepared for discharge to home in the morning. (2) HTN (hypertension) Current Visit: Yes Status: Chronic Assessment and plan: Patient systolic blood pressure remains somewhat elevated on several readings. Patient has when necessary clonidine for systolic greater than 170. We will continue on current medications. Qualifiers: Hypertension type: essential hypertension Qualified Code(s): I10 - Essential (primary) hypertension (3) COPD (chronic obstructive pulmonary disease) Current Visit: Yes Status: Chronic Assessment and plan: No acute issues. Patient's lungs are clear and patient appears relaxed with respirations. Patient denies any dyspnea or productive cough. Respiratory effort appears relaxed Qualifiers: COPD type: unspecified COPD Qualified Code(s): J44.9 - Chronic obstructive pulmonary disease, unspecified - Time Spent With Patient less than 15 minutes - Subjective Interval history: Patient denies any discomforts or shortness of breath. Physical therapy reports patient has been progressing with movement on her left extremities. Patient has been progressing well with speech therapy and today he is being and advanced on her dysphagia diet. Patient states that she wants to go home and is being prepared for DC in AM - Constitutional Vitals: Temp Pulse Resp BP Pulse Ox 98.3 F 54 12 142/62 97 03/18/18 08:00 03/18/18 08:00 03/18/18 08:00 03/18/18 08:00 03/18/18 08:00 General appearance: Present: A&O X 3, pleasant, no acute distress, answers questions appropriately - Head Head exam: Present: atraumatic, normocephalic - Eye Eye exam: Present: PERRL, conjuntiva pink, sclera anicteric Pupils: Present: PERRL - Neck Neck exam general surgery: Present: supple, trachea midline. Absent: lymphadenopathy - Respiratory Respiratory exam: Present: CTAB. Absent: accessory muscle use, rales, rhonchi, wheezes - Cardiovascular Cardiovascular exam: Present: RRR, +S1, +S2. Absent: diastolic murmur, gallop, rubs, systolic murmur - GI/Abdominal GI/Abdominal exam: Present: normal bowel sounds, soft, no peritoneal signs. Absent: distended, tenderness - Extremities Exam Extremities exam: Present: warm, radial pulses palpable and symmetrical. Absent : calf tenderness, cyanotic, pedal edema - Neurological Exam Neurological exam: Present: CN II-XII intact, oriented X3, speech deficit. Absent: pronater drift, facial droop Additional comments: Patient continues with left hemiparesis with left extremity muscle strength being at 3/5 and right extremity muscle strength 5/5. Patient continues with slight expressive aphasia. Currently with dysphagia and tolerating dysphagia diet. - Skin Skin exam: Present: dry, intact Internal Medicine: Result - Labs CBC & Chem 7: 03/14/18 07:01 03/14/18 07:01 - ABG Interpretation ABG results: PT/INR, D-dimer PT 13.7 Seconds (9.4-12.1) H 03/03/18 06:56 - Impressions Impressions Videofluoroscopic Swallow 03/17/18 14:36 IMPRESSION: Penetration with thin liquid barium and mixed textures. Please see separate speech pathology report for full discussion of findings and recommendations. D/ : / 03/17/2018 15:58:51 Lane Kelly MD / [facility] Interpreting Provider: Lane Kelly MD - VTE Documentation of Mechanical Device: Graduated compression elastic hosiery Consult Discharge Plan - Plan Referrals: Earle Robledo MD [Primary Care Provider] -
[2018-03-18] MEDS: Lisinopril 20 MG TABLET PO SCH (12:24)
[2018-03-18 15:39] LABS: BUN/Creatinine Ratio 28 (6-26); Blood Urea Nitrogen 18 mg/dL (8-23); Calcium 9.4 mg/dL (8.6-10.3); Carbon Dioxide 35 mEq/L (23-29); Chloride 92 mEq/L (98-107); Glucose 90 mg/dL (70-105); Osmolality,Calculated 277 (280-300); Potassium 3.6 mEq/L (3.5-5.1); Sodium 133 mEq/L (136-145); eGFR For African Americans > 60 (> 60); eGFR For Non-African Americans > 60 (> 60)
[2018-03-19 07:11] VITALS: BP 116/67
[2018-03-19] MEDS: amLODIPine 5 MG TABLET PO SCH (09:28)
[2018-03-19] MEDS: *HR* Metformin 500 MG TABLET PO SCH (09:29)
[2018-03-19] MEDS: Metoprolol XL (24 HR) Succ 50 MG TAB.ER.24H PO SCH (09:29)
[2018-03-19] MEDS: hydroCHLOROthiazide 25 MG TABLET PO SCH (09:29)
--- NOTE | 2018-03-19 11:05 | Discharge Summary ---
- NOTES TO OUTPATIENT PROVIDER Notes to Outpatient Provider: Patient has been instructed to quit smoking and avoid any smoking in the house, since she is on oxygen. Patient is to continue her PPI daily at home but this is not showing up on med list from known reasons. Date of Encounter: 03/19/18 Time of Encounter: 11:03 - Discharge Diagnosis (1) CVA (cerebrovascular accident due to intracerebral hemorrhage) Priority: Primary Status: Acute Comments: Right cerebral with left hemiparesis. Improving. Poor awareness of her deficits. Home physical therapy and support necessary. She is to be on thickened liquids as per therapy. Qualifiers: Intracerebral hemorrhage etiology: nontraumatic Cerebral hemorrhage location: cerebral hemisphere, cortical portion Laterality: left Qualified Code(s): I61.1 - Nontraumatic intracerebral hemorrhage in hemisphere, cortical (2) COPD (chronic obstructive pulmonary disease) Priority: Secondary Status: Chronic Comments: Chronic oxygen therapy and this is stable during admission. Qualifiers: COPD type: unspecified COPD Qualified Code(s): J44.9 - Chronic obstructive pulmonary disease, unspecified (3) HTN (hypertension) Priority: Secondary Status: Chronic Comments: Clinically stable while admitted. Qualifiers: Hypertension type: essential hypertension Qualified Code(s): I10 - Essential (primary) hypertension Hospital course: Ms. Hines is a 72 year old female who presented with left knee paresis and aphasia, disorientation. She was taken [facility] where she was stabilized, improved, had lingular pneumonia which was treated with antibiotics and stabilized before she was transferred here. She was transferred to [facility] for rehabilitation including occupational speech and physical therapies. Her diet was advanced and she improved with therapy. She is to go home for outpatient therapy which has been approved and qualified injured. She wanted to go home throughout her entire hospitalization and the therapy staff was concerned that she did not have good insight into her deficits. Family was educated prior to discharge about her discharge plans and needs at home for safety. She is still wheelchair bound and will be treated with home therapies, as above. - Time Spent with Patient Total time spent providing and/or coordinating discharge services: - Discharge Medications Home Medications: Albuterol Neb [Proventil Neb] 03/03/18 [History] Citalopram Hydrobromide [Citalopram HBr] 20 mg PO DAILY 03/03/18 [History] Pantoprazole Sodium [Protonix] 03/03/18 [History] Docusate [Colace] 100 mg PO BID 03/19/18 [History] Lisinopril [Zestril] 40 mg PO DAILY 03/19/18 [History] Metoprolol Succinate [Toprol Xl] 200 mg PO DAILY 03/19/18 [History] amLODIPine [Norvasc] 10 mg PO DAILY 03/19/18 [History] hydroCHLOROthiazide [Hydrochlorothiazide] 25 mg PO DAILY 03/19/18 [History] metFORMIN [Glucophage] 500 mg PO DAILY 03/19/18 [History] Allergies/Adverse Reactions: 3 Allergy/AdvReac Type Severity Reaction Status Date / Time Sulfa (Sulfonamide Allergy Hives Verified 03/02/18 20:51 Antibiotics) ranitidine [From Zantac] AdvReac Hives Verified 02/24/18 11:30 Date of admission: 03/02/18 19:27 Primary care physician: Earle Robledo MD Consults: 03/02/18 20:52 Consult to Occupational Therapy [CONS] Routine Comment: Evaluate, develop and implement POC Reason for Consult: Eval and Treat Does patient have active BEDREST order?: No Is patient medically & hemodynamically stable?: Yes Patient assessed for mobility or mobilized this visit?: No Consult to Physical Therapy [CONS] Routine Comment: Evaluate, develop and implement POC Reason for Consult: Eval and Treat Does patient have active BEDREST order?: No Is patient medically & hemodynamically stable?: Yes Patient assessed for mobility or mobilized this visit?: No Consult to Support Architect [CONS] Routine Reason for SW Consult: Discharge Planning Consult to Speech Therapy [CONS] Routine Comment: Evaluate, develop and implement POC Reason for Consult: speech impairment Call Completed: Yes 03/09/18 15:17 Consult to Physical Medicine/Rehab [CONS] Routine Reason for Consult: cva Call Completed: Yes Discharging clinician: Yuriy Pollard Anticipated date of discharge: 03/19/18 - Constitutional Vitals: Temp Pulse Resp BP Pulse Ox 97.5 F L 96 16 116/67 90 03/19/18 06:54 03/19/18 06:54 03/19/18 06:54 03/19/18 06:54 03/19/18 06:54 General appearance: Present: pleasant, answers questions appropriately Exam: Examination: (Except as mentioned above): General: In no apparent distress. Alert and oriented 3. Nondiaphoretic. Head: Atraumatic and normocephalic. Respiratory: No use of accessory muscles. Lungs are clear throughout. Normal airflow. Cardiovascular: Regular rate and rhythm without murmur appreciated. Abdomen: Bowel sounds are normal. No hepatosplenomegaly mass or tenderness appreciated. Obese and therefore difficult to palpate deeply. Extremities: No cyanosis clubbing or edema. Skin: Warm and non-diaphoretic with no new lesions noted. Still with left hemiparesis but not as dense as even a few days ago. - Patient Status Disposition: Home Health Service Condition: Good - Discharge Instructions Instructions: How to Check Your Blood Sugar (DC), Hemorrhagic Stroke, Fleet Coordinator (GEN) Follow Up With: Earle Robledo MD [Primary Care Provider] - - VTE Documentation of Mechanical Device: Graduated compression elastic hosiery
--- NOTE | 2018-03-19 11:14 | Physician Discharge Referral ---
Home Health/Hosp Referral Info Transfer to: Home Health Attending Provider: Artie Pollard M.D. Provider in Charge Post Discharge: PCP - Diagnosis (1) CVA (cerebrovascular accident due to intracerebral hemorrhage) Priority: Primary Status: Acute (2) COPD (chronic obstructive pulmonary disease) Priority: Secondary Status: Chronic (3) HTN (hypertension) Status: Chronic - Respiratory Orders Oxygen / L per min Smoking Cessation: Smoking cessation has been advised. For more information, call the [place] Tobacco Quit Line at 6-659-HEVR-NOW. - Diet/Nutrition Diet/Nutrition Orders: Mechanical Soft - Services Needed Following services are medically necessary services: Nursing, Physical Therapy, Occupational Therapy, Speech Therapy - Transfer Medications Home Medications: Albuterol Neb [Proventil Neb] 03/03/18 [History] Citalopram Hydrobromide [Citalopram HBr] 03/03/18 [History] Metoprolol Succinate 03/03/18 [History] Pantoprazole Sodium [Protonix] 03/03/18 [History] Allergies/Adverse Reactions: 3 Allergy/AdvReac Type Severity Reaction Status Date / Time Sulfa (Sulfonamide Allergy Hives Verified 03/02/18 20:51 Antibiotics) ranitidine [From Zantac] AdvReac Hives Verified 02/24/18 11:30 Certification: Further, I certify that my clinical findings support that this patient is homebound (i.e. absences from home require considerable and taxing effort and are for medical reasons or orthodoxy services or infrequently or short duration when for other reasons) because: Homebound Reason: Leaving home requires considerable and taxing effort due to condition Attestation: My signature below is to certify that this patient is under my care and that I, or nurse practitioner, or a physician's certified registered dental assistant working with me, has a face-to -face encounter with this patient.
[2018-03-19] MEDS: Insulin LISPRO 300 UNITS/3 ML VIAL SQ SCH ×2 (11:38→11:56)
[2018-03-19] MEDS: Lisinopril 20 MG TABLET PO SCH (11:51)
== END 2018-03-19 12:25 | disposition home health service (06) | DRG 57 ==
LOC: INPGRE 03-02 19:27